=== PATIENT | female | born 1945 | race Caucasian/White ===

== ENCOUNTER 2018-12-22 14:23 | Emergency (ER) | payer MEDICARE, BC ==
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
[2018-12-22] MEDS ORDERED: Fentanyl 100 MCG/2 ML VIAL ONE (15:31)
[2018-12-22] MEDS ORDERED: Acetaminophen 500 MG TAB ONE (16:06)
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
== END 2018-12-22 17:01 | disposition home or self-care (01) ==
LOC: ERS 14:23
DX: S20.212A Contusion of left front wall of thorax, initial encounter (principal); J44.9 Chronic obstructive pulmonary disease, unspecified; I10 Essential (primary) hypertension; Z79.82 Long term (current) use of aspirin; Z79.84 Long term (current) use of oral hypoglycemic drugs; Z79.899 Other long term (current) drug therapy; Z79.51 Long term (current) use of inhaled steroids; V49.9XXA Car occupant (driver) (passenger) injured in unspecified traffic accident, initial encounter
CPT/HCPCS: 71046; 71250; 74177; J3010

== ENCOUNTER 2019-05-03 14:17 | Emergency (ER) | payer MEDICARE, BC ==
[2019-05-03] MEDS ORDERED: Ketorolac Tromethamine 30 MG/ML VIAL ONE (14:52)
--- NOTE | 2019-05-03 15:17 | RAD ---
LEFT SHOULDER 2 VIEWS: HISTORY: injury, left shoulder pain FINDINGS: There is anterior inferior dislocation at the glenohumeral joint and a displaced fracture involving the greater tuberosity.
[2019-05-03] MEDS ORDERED: Morphine 4 MG/ML VIAL ONE (16:29)
[2019-05-03] MEDS ORDERED: Diazepam 10 MG/2 ML SYRINGE ONE (16:37)
--- NOTE | 2019-05-03 17:21 | RAD ---
LEFT SHOULDER: Two views 05/03/19 HISTORY: Post reduction. FINDINGS/IMPRESSION: Humeral head is now normally positioned over the glenoid indicating adequate reduction. The displaced fracture fragment from the humeral head is again noted. POS: [facility]
--- NOTE | 2019-05-03 17:29 | RAD ---
LEFT SHOULDER: 05/03/19 AP portable exam taken. One view. HISTORY: Post reduction. COMPARISON: Prereduction exam. FINDINGS/IMPRESSION: There continues to be subluxation/mild dislocation of the glenohumeral joint. Fracture from the mere ral head is again noted with displacement of greater tuberosity. Two view exam recommended to better assess humeral head position. POS: [facility]
--- NOTE | 2019-05-03 17:55 | CON ---
DATE OF CONSULTATION: 05/03/2019 CONSULTATION PHYSICIAN: Colt Nicole MD. REQUESTING PHYSICIAN: Luis Manuel Bautista MD. REASON FOR CONSULTATION: Left proximal humerus fracture dislocation. HISTORY OF PRESENT ILLNESS: This is a 73-year-old female, who tripped and fell, landing onto her left shoulder. She was brought in by ambulance with an obvious deformity to the left shoulder. At bedside, she reports she is right-handed. Denies any other pain elsewhere. Denies any head injury or loss of consciousness. She also denies any numbness or tingling in the affected extremity. PAST MEDICAL HISTORY: Significant for type 2 diabetes, COPD, bronchiectasis, osteoporosis, hypertension. PAST SURGICAL HISTORY: Sinuplasty, left breast tumor, ear tubes. SOCIAL HISTORY: The patient lives with family. 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 She ambulates independently. Denies any alcohol, tobacco, or drug use. FAMILY HISTORY: Reviewed and noncontributory. REVIEW OF SYSTEMS: Ten-point review of systems conducted and otherwise negative except as stated above. PHYSICAL EXAMINATION: VITAL SIGNS: Blood pressure 152/108, pulse of 66, respiratory rate of 16, temperature 97.8, and O2 saturation of 100% on room air. GENERAL: The patient is awake and alert. She appears comfortable at this time. She is holding her left upper extremity close to her body. She is in no apparent distress. Her daughter is present in the exam room at this time. HEENT: Head is normocephalic and atraumatic. NECK: Supple. Trachea midline. Breathing nonlabored. EXTREMITIES: Left upper extremity is held in a position of comfort with flexion at the elbow and adduction at the shoulder. There is an obvious deformity with the humeral head, prominent anteriorly. The patient is unable to move all digits. She is able to make a composite fist. Distal neurovascular status is intact. Other 3 extremities were evaluated. No obvious deformities are noted. RADIOGRAPHIC DATA: Reviewed today with Dr. Nicole including views of the shoulder show evidence of a greater tuberosity fracture and anterior shoulder dislocation. IMPRESSION: Left shoulder anterior dislocation with greater tuberosity fracture. PLAN: At this time, the patient has multiple comorbidities. Due to multiple comorbidities, we will attempt a reduction in the emergency department. The patient states that her night coordinator would not allow her to have a bronchoscopy recently due to the fact that "he was afraid she would not wake up." We will plan for an attempted reduction in the emergency department. This is unsuccessful. We will plan to proceed to the operating room. PROCEDURE: The patient was given 4 mg morphine and 5 mg of Valium IV. Traction and countertraction were pulled on the patient's left shoulder. Postreduction films confirmed reduction was successful. The patient tolerated the procedure well. Distal neurovascular status intact following the reduction. PLAN: Reduction successful in emergency department. The patient placed in a sling. Given tramadol to go home with as well as our contact information for office. We would like to see her next week in the office just to make sure that this reduction stays back in place. We will also be following her for the greater tuberosity fracture. She will leave the sling intact and likely sleep in a recliner overnight. Being that the holidays are coming up, we would like to see her in the office on the or on the as those are the most available upcoming dates. Plan of care discussed with the patient and her daughter today. They verbalized understanding and are amenable to this. Job ID: [id number]
== END 2019-05-03 18:25 | disposition home or self-care (01) ==
LOC: ERS 14:17
DX: S42.252A Displaced fracture of greater tuberosity of left humerus, initial encounter for closed fracture (principal); E11.9 Type 2 diabetes mellitus without complications; J44.9 Chronic obstructive pulmonary disease, unspecified; M81.0 Age-related osteoporosis without current pathological fracture; I10 Essential (primary) hypertension; W01.0XXA Fall on same level from slipping, tripping and stumbling without subsequent striking against object, initial encounter
CPT/HCPCS: 96374; 96375; J1885; J2270; J3360

== ENCOUNTER 2024-09-06 12:21 | Outpatient (CLI) | payer MEDICARE, BC ==
[2024-09-06 13:42] LABS: #Basophils 0.08 10x3/uL (0.0-0.2); %Basophils 0.9 % (0.0-1.0); %Eosinophils 3.4 % (0.0-10.0); %Monocytes 6.9 % (0.0-10.0); %Neutrophils 46.5 % (42.0-75.0); Hematocrit 32.3 % (36.0-47.0); Hemoglobin 9.6 g/dL (12.0-16.0); Mean Corpuscular HGB CONC 29.7 g/dL (32.0-36.0); Mean Corpuscular Hemoglobin 23.5 pg (27.0-31.0); Mean Platelet Volume 9.6 fL (7.4-10.4); Platelet Count 383 10x3/uL (130-400); RBC Distribution Width 17.7 % (11.5-14.5); Red Blood Cell (RBC) Count 4.09 mill/uL (4.20-5.40)
[2024-09-06 13:58] LABS: Hemoglobin A1c 6.3 % (4.0-6.0)
[2024-09-06 13:59] LABS: Anion Gap 14 mmol/L (10-20); BUN (Urea Nitrogen) 29 mg/dL (9.8-20.1); Calc. Creatinine Clearance 0 mL/min (70-130); Carbon Dioxide 18 mmol/L (23-31); Chloride 108 mmol/L (98-107); Estimated GFR 37; Glucose 103 mg/dL (83-110); Potassium 5.8 mmol/L (3.5-5.1); Sodium 134 mmol/L (136-145)
[2024-09-06 14:21] LABS: Prothrombin Time 13.6 sec (12.0-14.7)
[2024-09-06 14:33] LABS: PTT 25.1 sec (22.9-36.1)
== END 2024-09-06 12:22 | disposition home or self-care (01) ==
LOC: LABBT 12:21
PROVIDERS: ATTEND Orthopaedic Surgery
DX: Z01.818 Encounter for other preprocedural examination (principal); M80.00XA Age-related osteoporosis with current pathological fracture, unspecified site, initial encounter for fracture
CPT/HCPCS: 80048; 83036; 85025; 85610; 85730; 93005; 93010

== ENCOUNTER → 2025-04-19 | Emergency (ER) | payer MEDICARE, BC ==
[2025-04-19 17:05] LABS: ALT (SGPT) 16 U/L (Less than 34); AST (SGOT) 34 U/L (11-34); Albumin 3.0 g/dL (3.1-4.5); Alkaline Phosphatase 149 U/L (40-110); Anion Gap 14 mmol/L (10-20); BUN (Urea Nitrogen) 25 mg/dL (9.8-20.1); Bilirubin, Total 0.1 mg/dL (0.3-1.2); Calc. Creatinine Clearance 0 mL/min (70-130); Calcium 8.5 mg/dL (7.8-10.44); Carbon Dioxide 20 mmol/L (23-31); Chloride 106 mmol/L (98-107); Globulin 3.3 g/dL (2.4-3.5); Glucose 99 mg/dL (83-110); Potassium 5.4 mmol/L (3.5-5.1); Sodium 135 mmol/L (136-145)
[2025-04-19 17:24] LABS: #Basophils 0.05 10x3/uL (0.0-0.2); #Eosinophils 0.13 10x3/uL (0.0-0.7); #Monocytes 0.71 10x3/uL (0.11-0.59); #Neutrophils 4.54 10x3/uL (1.40-6.50); %Basophils 0.5 % (0.0-1.0); %Eosinophils 1.4 % (0.0-10.0); %Lymphocytes 40.7 % (21.0-51.0); %Monocytes 7.7 % (0.0-10.0); %Neutrophils 49.6 % (42.0-75.0); Hematocrit 30.0 % (36.0-47.0); Hemoglobin 9.1 g/dL (12.0-16.0); Mean Corpuscular Hemoglobin 25.9 pg (27.0-31.0); Mean Corpuscular Volume 85.2 fL (78.0-98.0); Platelet Count 290 10x3/uL (130-400); Red Blood Cell (RBC) Count 3.52 mill/uL (4.20-5.40); White Blood Cell (WBC) Count 9.17 10x3/uL (4.8-10.8)
== END ==
LOC: ERS 16:08
DX: R00.2 Palpitations (principal); I48.91 Unspecified atrial fibrillation; E11.9 Type 2 diabetes mellitus without complications; J44.9 Chronic obstructive pulmonary disease, unspecified; I10 Essential (primary) hypertension; Z95.0 Presence of cardiac pacemaker; Z79.01 Long term (current) use of anticoagulants
CPT/HCPCS: 36415; 71045; 80053; 83880; 84484; 85025; 93005